=== PATIENT | female | born 1965 | race African-American/Black ===

== ENCOUNTER 2021-09-05 17:57 | Emergency (ER) | payer OTHER ==
[2021-09-05 20:36] LABS: Urine Blood Negative (Negative); Urine Glucose Negative (Negative); Urine Protein Negative (Negative)
[2021-09-05 20:38] LABS: Lymphocytes % 39.6 % (15.3-44.8); MPV 7.6 fL (7.6-11.3)
[2021-09-05 20:43] LABS: Hematocrit 17.1 % (36.0-45.0)
[2021-09-05 20:48] LABS: Albumin 3.4 g/dL (3.4-5.0); Bilirubin Total 0.2 mg/dL (0.2-1.0); Potassium 3.8 mmol/L (3.5-5.1); Protein, Total 7.8 g/dL (6.4-8.2)
--- NOTE | 2021-09-05 21:58 | RAD REPORT ---
EXAM DESCRIPTION: CT - Abdomen Pelvis W Contrast - 09/05/2021 9:23 pm CLINICAL HISTORY: Abdominal pain/anemia COMPARISON: none. TECHNIQUE: Computed axial tomography of the abdomen pelvis was obtained. 100 cc Isovue-300 was admin istered intravenously. Oral contrast was not requested which limits evaluation of bowel and appendix All CT scans are performed using dose optimization technique as appropriate and may include automated exposure control or mA/KV adjustment according to patient size. FINDINGS: The liver, spleen, pancreas, adrenal and kidneys appear unremarkable. There is no evidence of diverticulitis. Bladder wall appears thickened Ventral hernia repair. Stranding within the adjacent anterior subcutaneous fat likely the sequela of the surgery. No abscess. Small to moderate amount of dense ascites compatible with blood is present within the pelvis IMPRESSION: Small to moderate amount of blood within the pelvis Bladder wall thickening may be secondary to incomplete distention or pathology such as cystitis.
[2021-09-05] MEDS ORDERED: ONDANSETRON 4 MG/2 ML VIAL ONE (23:06)
--- NOTE | 2021-09-05 23:32 | ER ---
Nurse's Notes [facility] Name: Gauri Paulson Age: 55 yrs Sex: Female : 1965 Arrival Date: 09/05/2021 Time: 18:05 Bed 13 Private MD: Diagnosis: Anemia, unspecified;Abnormal results of liver function studies;Small to moderate blood within the pelvis Presentation: 09/05 18:35 Chief complaint: Patient states: I went for a random checkup yesterday. My doctor ld1 called me today and told me to come to the nearest ER for a blood transfusion. She said my blood count level was 5. Coronavirus screen: At this time, the client does not indicate any symptoms associated with coronavirus-19. Ebola Screen: No symptoms or risks identified at this time. Initial Sepsis Screen: Does the patient meet any 2 criteria? No. Patient's initial sepsis screen is negative. Does the patient have a suspected source of infection? No. Patient's initial sepsis screen is negative. Risk Assessment: Do you want to hurt yourself or someone else? Patient reports no desire to harm self or others. Onset of symptoms was September 05, 2021. 18:35 Method Of Arrival: Ambulatory ld1 18:35 Acuity: MYRA 3 ld1 Triage Assessment: 18:29 General: Appears in no apparent distress. comfortable, Behavior is calm, cooperative, ld1 appropriate for age. Pain: Denies pain. EENT: No signs and/or symptoms were reported regarding the EENT system. Neuro: Level of Consciousness is awake, alert, obeys commands, Oriented to person, place, time, situation. Cardiovascular: Capillary refill < 3 seconds Patient's skin is warm and dry. Respiratory: Airway is patent Respiratory effort is even, unlabored. GI: Abdomen is round non-distended. Historical: - Allergies: 18:29 No Known Allergies; ld1 - Home Meds: 18:29 clopidogrel 75 mg oral tab 1 tab once daily [Active]; ld1 18:31 carvedilol 6.25 mg oral tab 1 tab 2 times per day [Active]; aspirin 81 mg Oral chew 1 ld1 tab once daily [Active]; atorvastatin 10 mg oral tab 1 tab once daily [Active]; - PMHx: 18:31 Hypertensive disorder; ld1 - PSHx: 18:29 3 heart stents; ld1 - Immunization history:: Adult Immunizations up to date, Client reports having NOT received the Covid vaccine. - Social history:: Smoking status: Patient denies any tobacco usage or history of. Patient/guardian denies using alcohol. Screenin:45 Abuse screen: Denies threats or abuse. Nutritional screening: No deficits noted. ld1 Tuberculosis screening: No symptoms or risk factors identified. Fall Risk No fall in past 12 months (0 pts). No secondary diagnosis (0 pts). IV access (20 points). Ambulatory Aid- None/Bed Rest/Nurse Assist (0 pts). Gait- Normal/Bed Rest/Wheelchair (0 pts) Mental Status- Oriented to own ability (0 pts). Total Ugy Fall Scale indicates No Risk (0-24 pts). Assessment: 19:45 General: Appears comfortable, Behavior is calm, cooperative. Pain: Denies pain. Neuro: ld1 No deficits noted. Respiratory: No deficits noted. Respiratory: Denies shortness of breath. Derm: Skin is pink, warm \T\ dry. 19:45 Cardiovascular: Parent/caregiver reports patient has had no cardiovascular symptoms. ll3 States doctor called with abnormal lab results and was told to come her because she needed a blood transfusion. 22:22 Reassessment: No changes from previously documented assessment. Patient and/or family ll3 updated on plan of care and expected duration. Pain level reassessed. Patient is alert, oriented x 3, equal unlabored respirations, skin warm/dry/pink. Patient denies pain at this time. 23:00 Reassessment: Dr. Rui MD and Bird Rodriguez NP at bedside informing pt of need for ll3 blood transfusion and risks of leaving without treatment. 23:30 Reassessment: Pt was educated on risk of leaving AMA and not receiving a blood ll3 transfusion, pt verbalizes understanding of the risks of refusing blood transfusion and leaving AMA, pt left ED without receiving treatment. Vital Signs: 18:35 BP 115 / 74; Pulse 106; Resp 18; Temp 98.1(TE); Pulse Ox 99% on R/A; Weight 59.87 kg; ld1 Height 5 ft. 0 in. (152.40 cm); Pain 0/10; 20:00 BP 119 / 79; Pulse 92; Resp 18; Pulse Ox 99% on R/A; ld1 22:24 BP 112 / 67; Pulse 81; Resp 17; Pulse Ox 100% on R/A; ll3 23:00 BP 115 / 72; Pulse 77; Resp 18; Pulse Ox 100% on R/A; ll3 18:35 Body Mass Index 25.78 (59.87 kg, 152.40 cm) ld1 ED Course: 18:05 Patient arrived in ED. am2 18:13 Bird Rodriguez NP is PHCP. pm1 18:13 Garett Mao MD is Attending Physician. pm1 18:35 Arm band placed on right wrist. ld1 18:36 Triage completed. ld1 19:45 Patient has correct armband on for positive identification. Bed in low position. Call ld1 light in reach. Side rails up X 1. Adult w/ patient. 20:15 Initial lab(s) drawn, sent to lab. T\T\S collected, blood band applied to patient. bb Inserted saline lock: 20 gauge in left antecubital area, using aseptic technique. Blood collected. 20:24 Es Antonio RN is Primary Nurse. ld1 21:00 Notified ED physician of a critical lab result(s). AST 485, ALT 384. ld1 21:25 CT Abd/Pelvis - IV Contrast Only In Process Unspecified. EDMS 23:51 No provider procedures requiring assistance completed. IV discontinued, intact, ll3 bleeding controlled, No redness/swelling at site. Pressure dressing applied. Administered Medications: 23:45 Not Given (Patient Refused): Zofran (Ondansetron) 4 mg IVP once; over 2 minutes ll3 Medication: 23:59 VIS not applicable for this client. ll3 Point of Care Testing: Guaiac: 20:54 Stool Guaiac: Negative; Stool Hemoccult Control: Pass; mw2 Outcome: 23:31 Discharge ordered by . pm1 23:51 Discharged to home ambulatory, with family. ll3 23:51 Condition: stable 23:51 Discharge instructions given to patient, family, Instructed on Leaving AMA Demonstrated understanding of instructions, follow-up care, Leaving AMA 09/06 00:00 Patient left the ED. ll3 Signatures: Dispatcher [employer] EDMS Quita Garrido RN RN bb Marinas, Patrick, NP MANAGER CHANGE pm1 Apolonia Wells am2 Cresencio Preciado mw2 Es Antonio RN RN ld1 Brendon Lemos RN RN ll3 Corrections: (The following items were deleted from the chart) 09/05 18:32 18:29 PMHx: None; ld1 ld1 20:58 20:55 General: Appears comfortable, Behavior is calm, cooperative, ld1 ld1 20:58 20:55 Pain: Denies pain. ld1 ld1 :58 20:55 Neuro: No deficits noted. ld1 ld1 20:58 20:55 Respiratory: No deficits noted. ld1 ld1 20:58 20:55 Derm: Skin is pink, warm \T\ dry. ld1 ld1 :58 20:55 Respiratory: Denies shortness of breath ld1 ld1 22:24 19:45 Cardiovascular: Parent/caregiver reports patient has had no cardiovascular ll3 symptoms. States doctor called wit abnormal lab results and was told to come her because she needed a blood transfusion ld1
--- NOTE | 2021-09-05 23:32 | EDPHYS ---
Physician Documentation [facility] Name: Gauri Paulson Age: 55 yrs Sex: Female : 1965 Arrival Date: 09/05/2021 Time: 18:05 Bed 13 Private MD: ED Physician Garett Mao HPI: 09/05 19:11 This 55 yrs old Black Female presents to ER via Ambulatory with complaints of Abnormal pm1 Lab Results. 19:11 Onset: The symptoms/episode began/occurred today. Associated signs and symptoms: pm1 Pertinent positives: RUQ pain that has resolved, Pertinent negatives: chest pain, cough, fever, shortness of breath. Modifying factors: The patient symptoms are alleviated by nothing, the patient symptoms are aggravated by nothing. The patient has not experienced similar symptoms in the past. The patient has been recently seen by a physician: the patient's primary care provider, yesterday, check up and had labs drawn. Patient was seen by her PCP yesterday and had labs drawn for a checkup. Patient was called by her PCP today to report to the ER for possible blood transfusion due to anemia.. 19:11 Patient prescribed iron supplementation since June of this year due to anemia. pm1 Historical: - Allergies: 18:29 No Known Allergies; ld1 - Home Meds: 18:29 clopidogrel 75 mg oral tab 1 tab once daily [Active]; ld1 18:31 carvedilol 6.25 mg oral tab 1 tab 2 times per day [Active]; aspirin 81 mg Oral chew 1 ld1 tab once daily [Active]; atorvastatin 10 mg oral tab 1 tab once daily [Active]; - PMHx: 18:31 Hypertensive disorder; ld1 - PSHx: 18:29 3 heart stents; ld1 - Immunization history:: Adult Immunizations up to date, Client reports having NOT received the Covid vaccine. - Social history:: Smoking status: Patient denies any tobacco usage or history of. Patient/guardian denies using alcohol. ROS: 19:11 Constitutional: Negative for fever, chills, and weight loss, Cardiovascular: Negative pm1 for chest pain, palpitations, and edema, Respiratory: Negative for shortness of breath, cough, wheezing, and pleuritic chest pain. 19:11 Back: Negative for injury and pain, MS/Extremity: Negative for injury and deformity, Skin: Negative for injury, rash, and discoloration, Neuro: Negative for headache, weakness, numbness, tingling, and seizure. 19:11 Abdomen/GI: Positive for nausea, RLQ pain yesterday that has resolved. 19:11 All other systems are negative. Exam: 19:11 Constitutional: This is a well developed, well nourished patient who is awake, alert, pm1 and in no acute distress. Head/Face: Normocephalic, atraumatic. 19:11 Back: No spinal tenderness. No costovertebral tenderness. Full range of motion. Skin: Warm, dry with normal turgor. Normal color with no rashes, no lesions, and no evidence of cellulitis. MS/ Extremity: Pulses equal, no cyanosis. Neurovascular intact. Full, normal range of motion. 19:11 Eyes: Extraocular movements: no acute changes, Conjunctiva: pale, bilaterally. 19:11 ENT: Exam is negative for acute changes, Mouth: no acute changes, Lips: normal, moist, Oral mucosa: normal, pink and intact, moist. 19:11 Cardiovascular: Exam negative for acute changes, Rate: tachycardic, Rhythm: regular, Pulses: no pulse deficits are appreciated, Heart sounds: normal, normal S1and S2. 19:11 Respiratory: Exam negative for acute changes, respiratory distress, shortness of breath, Breath sounds: are clear throughout. 19:11 Abdomen/GI: Inspection: abdomen appears normal, Palpation: abdomen is soft and non-tender, in all quadrants. 19:11 Neuro: Exam negative for acute changes, Orientation: is normal, Mentation: is normal, Motor: is normal, moves all fours. 20:03 Abdomen/GI: Rectal exam: Stool: normal, guaiac negative, Alesha Fisher Sponge Hooking. pm1 Vital Signs: 18:35 BP 115 / 74; Pulse 106; Resp 18; Temp 98.1(TE); Pulse Ox 99% on R/A; Weight 59.87 kg; ld1 Height 5 ft. 0 in. (152.40 cm); Pain 0/10; 20:00 BP 119 / 79; Pulse 92; Resp 18; Pulse Ox 99% on R/A; ld1 22:24 BP 112 / 67; Pulse 81; Resp 17; Pulse Ox 100% on R/A; ll3 23:00 BP 115 / 72; Pulse 77; Resp 18; Pulse Ox 100% on R/A; ll3 18:35 Body Mass Index 25.78 (59.87 kg, 152.40 cm) ld1 MDM: 18:51 Patient medically screened. pm1 22:49 Counseling: I had a detailed discussion with the patient and/or guardian regarding: the pm1 historical points, exam findings, and any diagnostic results supporting the discharge/admit diagnosis, lab results, radiology results, the need for further work-up and treatment in the hospital. 22:49 Refusal of service: The patient/guardian displays adequate decision making capability pm1 and despite a detailed discussion of alternatives, benefits, risks, and consequences refuses: Admission to the hospital for further work-up and treatment. 23:01 Refusal of service: The patient/guardian displays adequate decision making capability pm1 and despite a detailed discussion of alternatives, benefits, risks, and consequences refuses: Admission to the hospital for further work-up and treatment, Discussed at length with the patient the need for her to stay in the hospital for blood transfusion, further evaluation and treatment, and surgical evaluation due to the findings in her lab work and the CT findings of blood in herabdomen/pelvis. Dr. Fabian and I explained to her the severity of her presentation of anemia with blood in the abdomen/pelvis and discussed the importance of her staying in the hospital but she does not want to be admitted. 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 23:16 Data reviewed: vital signs. pm1 23:22 ED course: Patient decided to leave against AMA. Patient refused to get a blood pm1 transfusion prior to leaving AMA. Patient did not want to stay in the hospital for further evaluation and treatment. Patient's sister is present in the room for her AMA. 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 23:54 ED course: After results, visited with patient with Bird to further eval. Patient rn with non-tender abd exam, no distension, denies bleeding. Told by physician to come to ER for low hemoglobin. CT shows blood in pelvis, explained to her numerous times that needs to be admitted for blood transfusion and further evaluation of free pelvic blood. Patient refuses to be admitted and speaks to us as if we are making these findings up and does not believe that this is as serious as we are describing it to be. Bird and I explained seriousness of situation and she states she needs to leave because she is here for softball game and has team members with her. Sister in room and is not trying to convince patient to stay. Patient asked to call someone on phone and ultimately decided to not get blood transfusion, refuses admission, and even goes as far as accusing us of "bullying" her into being admitted. . 09/05 18:40 Order name: CBC with Diff; Complete Time: 20:44 pm1 09/05 18:40 Order name: CMP; Complete Time: 21:04 pm1 09/05 18:48 Order name: Type And Screen pm1 09/05 20:37 Order name: Urine Dipstick-Ancillary; Complete Time: 20:44 EDMS 09/05 18:41 Order name: IV Saline Lock; Complete Time: 20:24 pm1 09/05 19:02 Order name: CT Abd/Pelvis - IV Contrast Only; Complete Time: 22:01 pm1 09/05 19:02 Order name: Urine Dipstick-Ancillary (obtain specimen); Complete Time: 20:54 pm1 09/05 20:54 Order name: EKG; Complete Time: 20:54 pm1 09/05 20:54 Order name: EKG - Nurse/Tech; Complete Time: 21:14 pm1 Administered Medications: 23:45 Not Given (Patient Refused): Zofran (Ondansetron) 4 mg IVP once; over 2 minutes ll3 Point of Care Testing: Guaiac: 20:54 Stool Guaiac: Negative; Stool Hemoccult Control: Pass; mw2 Disposition: 09/06 07:45 Co-signature as Attending Physician, Garett Mao MD I agree with the assessment and kdr plan of care. Disposition Summary: 09/05/21 23:31 Discharge Ordered Location: Home pm1 Problem: new pm1 Symptoms: are unchanged pm1 Condition: Undetermined pm1 Diagnosis - Anemia, unspecified pm1 - Abnormal results of liver function studies pm1 - Small to moderate blood within the pelvis pm1 Followup: pm1 - With: Emergency Department - When: As needed - Reason: Worsening of condition Followup: pm1 - With: Private Physician - When: Upon discharge from the Emergency Department - Reason: Recheck today's complaints, Continuance of care, Re-evaluation by your physician Discharge Instructions: - Discharge Summary Sheet pm1 - Anemia pm1 Forms: - Medication Reconciliation Form pm1 - Thank You Letter pm1 - Antibiotic Education pm1 - Prescription Opioid Use pm1 Signatures: Dispatcher [employer] EDGarett Che MD MD kdr Nieto, Roman, MD MD rn Marinas, Patrick, CARTOGRAPHIC DESIGNER CARTOGRAPHIC DESIGNER pm1 Es Antonio RN RN ld1 Brendon Lemos RN ll3 Corrections: (The following items were deleted from the chart) 09/05 18:32 18:29 PMHx: None; ld1 ld1 23:45 20:54 Blood Transfusion Consent ordered. pm1 ll3
[2021-09-06 00:30] VITALS: TEMP 98.1
[2021-09-06 00:33] VITALS: O2SAT 100
[2021-09-06 00:36] VITALS: BP 115/72
--- NOTE | 2021-09-09 07:56 | EKG ---
Test Date: 2021-09-05 Test Time: 21:08:09 [place] Hand: JENNY MEASUREMENT RESULTS: Intervals: Rate: 91 OH: 176 QRSD: 78 QT: 380 QTc: 467 [place]: P: 46 OH: 176 QRS: -4 T: 21 INTERPRETIVE STATEMENTS: Normal sinus rhythm Normal ECG No previous ECG available for comparison Electronically Signed On 09-09-21 07:50:55 CDT by Kd Jones
== END 2021-09-06 | disposition home or self-care (01) ==
LOC: ER 17:57
DX: D64.9 Anemia, unspecified (principal); R94.5 Abnormal results of liver function studies; N93.9 Abnormal uterine and vaginal bleeding, unspecified; I10 Essential (primary) hypertension; Z79.82 Long term (current) use of aspirin; Z95.818 Presence of other cardiac implants and grafts
CPT/HCPCS: 93005; 85025; 36415; 86900; 86850; 86901; 81003; 80053; 74177; 99284; Q9967; J2405